=== PATIENT | female | born 1995 | race Caucasian/White ===

== ENCOUNTER 2021-02-02 18:55 | Emergency (ER) | payer OTHER ==
[2021-02-02 19:03] VITALS: BP 125/80; PULSE 89; TEMP 98; BMI 36.3
[2021-02-02 19:47] LABS: HCG,QUALITATIVE URINE Negative
[2021-02-02 20:02] LABS: EPITHELIAL CELLS MODERATE /hpf
== END 2021-02-02 20:40 | disposition home or self-care (01) ==
LOC: FER 18:55
DX: S30.1XXA Contusion of abdominal wall, initial encounter (principal); V49.40XA Driver injured in collision with unspecified motor vehicles in traffic accident, initial encounter
CPT/HCPCS: 81003; 81015; 84703; 87077; 87086; 99283-25